=== PATIENT | female | born 1995 | race Caucasian/White ===

== ENCOUNTER 2018-02-07 17:35 | Emergency (ER) | payer SELFPAY ==
[2018-02-07 19:13] LABS: Absolute Lymphocytes (CBC) 3.1 K/uL (0.7-4.9); Absolute Monocytes 0.8 K/uL (0.1-1.3); Absolute Neutrophil 6.3 K/uL (1.8-8.0); Basophils % 0.3 % (0-1.3); Eosinophils % 1.7 % (0-4.4); Hematocrit 37.7 % (36.0-45.0); Lymphocytes % 29.7 % (15.3-44.8); MCH 25.7 pg (27.0-35.0); MCV 79.8 fL (80-100); MPV 9.8 fL (7.6-11.3); Monocytes % 7.8 % (3.3-12.3); RBC Red Blood Cell Count 4.72 M/uL (3.86-4.86)
[2018-02-07 19:16] LABS: Urine Blood NEGATIVE (NEG); Urine Glucose NEGATIVE (NEG); Urine Protein NEGATIVE (NEG); Urine Specific Gravity 1.025 (1.005-1.030); Urine pH 7.5 (5.0-7.0)
[2018-02-07 19:17] LABS: Glomerular Filtration Rate > 60 mL/min (>60)
[2018-02-07 19:18] LABS: Bicarbonate 24 mEq/L (21-31); Glucose Level 110 mg/dL (65-120); Lipase 22 U/L (22-51); Potassium 3.7 mEq/L (3.6-5.0); Sodium Level 137 mEq/L (135-145)
[2018-02-07 19:25] LABS: ALT/SGPT 15 IU/L (10-60); AST/SGOT 18 IU/L (10-42); Albumin 3.7 g/dL (3.2-5.5); Alkaline Phosphatase 52 IU/L (42-121); BUN Blood Urea Nitrogen 11 mg/dL (6-20); Bilirubin Direct 0.1 mg/dL (0-0.2); Bilirubin Total 0.4 mg/dL (0.3-1.2); Glomerular Filtration Rate > 90 mL/min (=/>90); Protein, Total 7.4 g/dL (6.0-8.3)
--- NOTE | 2018-02-07 20:18 | RAD REPORT ---
EXAM DESCRIPTION: CTAbdomen Pelvis W Contrast - 02/07/2018 8:07 pm CLINICAL HISTORY: Abdominal pain. COMPARISON: None. TECHNIQUE: Biphasic CT imaging of the abdomen and pelvis was performed with 100 ml non-ionic IV cont rast. All CT scans are performed using dose optimization technique as appropriate and may include automated exposure control or mA/KV adjustment according to patient size. FINDINGS: The lung bases are clear. The liver, spleen, pancreas, adrenal glands and kidneys are within normal limits. No bowel obstruction, free air, free fluid or abscess. The appendix is normal. No evidence of signi ficant lymphadenopathy. No suspicious bony findings. 3.7 x 3.6 cm left ovarian cyst is noted. IMPRESSION: No acute intra-abdominal or pelvic finding. Left ovarian cyst, measuring 3.7 x 3.6 cm.
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
--- NOTE | 2018-02-07 20:23 | EDPHYS ---
Physician Documentation [facility] Name: Laney Tam Age: 22 yrs Sex: Female : 1995 Arrival Date: 02/07/2018 Time: 17:38 Bed 18 Private MD: ED Physician Catalino Kinney HPI: 02/07 19:07 This 22 yrs old Female presents to ER via Ambulatory with complaints of jr8 Abdominal Pain. 19:07 The patient presents with abdominal pain in the left lower quadrant. Onset: The jr8 symptoms/episode began/occurred acutely, today. The symptoms do not radiate. Associated signs and symptoms: none. The symptoms are described as stabbing. Modifying factors: The symptoms are alleviated by nothing, the symptoms are aggravated by movement, pressure. Severity of pain: At its worst the pain was moderate in the emergency department the pain is unchanged. The patient has not experienced similar symptoms in the past. The patient has not recently seen a physician. 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 - Social history:: Smoking status: Patient uses tobacco products, smokes one pack cigarettes per day. ROS: 19:07 Eyes: Negative for injury, pain, redness, and discharge, ENT: Negative for injury, jr8 pain, and discharge, Neck: Negative for injury, pain, and swelling, Cardiovascular: Negative for chest pain, palpitations, and edema, Respiratory: Negative for shortness of breath, cough, wheezing, and pleuritic chest pain, Back: Negative for injury and pain, MS/Extremity: Negative for injury and deformity, Skin: Negative for injury, rash, and discoloration, Neuro: Negative for headache, weakness, numbness, tingling, and seizure. 19:07 Abdomen/GI: Positive for abdominal pain, Negative for nausea, vomiting, and diarrhea, abdominal cramps, abdominal distension, anorexia, dysphagia, hematemesis, black/tarry stool, rectal pain, rectal bleeding, bowel incontinence, flatulence. Exam: 19:07 Eyes: Pupils equal round and reactive to light, extra-ocular motions intact. Lids and jr8 lashes normal. Conjunctiva and sclera are non-icteric and not injected. Cornea within normal limits. Periorbital areas with no swelling, redness, or edema. ENT: Nares patent. No nasal discharge, no septal abnormalities noted. Tympanic membranes are normal and external auditory canals are clear. Oropharynx with no redness, swelling, or masses, exudates, or evidence of obstruction, uvula midline. Mucous membranes moist. Neck: Trachea midline, no thyromegaly or masses palpated, and no cervical lymphadenopathy. Supple, full range of motion without nuchal rigidity, or vertebral point tenderness. No Meningismus. Cardiovascular: Regular rate and rhythm with a normal S1 and S2. No gallops, murmurs, or rubs. Normal PMI, no JVD. No pulse deficits. Respiratory: Lungs have equal breath sounds bilaterally, clear to auscultation and percussion. No rales, rhonchi or wheezes noted. No increased work of breathing, no retractions or nasal flaring. Back: No spinal tenderness. No costovertebral tenderness. Full range of motion. Skin: Warm, dry with normal turgor. Normal color with no rashes, no lesions, and no evidence of cellulitis. MS/ Extremity: Pulses equal, no cyanosis. Neurovascular intact. Full, normal range of motion. Neuro: Awake and alert, GCS 15, oriented to person, place, time, and situation. Cranial nerves II-XII grossly intact. Motor strength 5/5 in all extremities. Sensory grossly intact. Cerebellar exam normal. Normal gait. 19:07 Abdomen/GI: Inspection: abdomen appears normal, Bowel sounds: active, all quadrants, Palpation: soft, in all quadrants, mild abdominal tenderness, in the suprapubic area, moderate abdominal tenderness, in the left lower quadrant, mass, is not appreciated, rebound tenderness, is not appreciated, voluntary guarding, is not appreciated, involuntary guarding, is not appreciated, no appreciated organomegaly, Indicators: McBurney's point is not tender, Artis's sign is negative, Rovsing's sign is negative, Liver: no appreciated palpable abnormalities, tenderness, is not appreciated. Vital Signs: 17:58 BP 143 / 78; Pulse 77; Resp 16; Temp 98; Pulse Ox 100% on R/A; Weight 105.23 kg; Height hb 5 ft. 4 in. (162.56 cm); Pain 6/10; 19:45 BP 117 / 68; Pulse 82; Resp 17 S; Pulse Ox 99% on R/A; Pain 0/10; jd3 20:25 BP 113 / 58; Pulse 78; Resp 17 S; Pulse Ox 100% on R/A; Pain 0/10; jd3 17:58 Body Mass Index 39.82 (105.23 kg, 162.56 cm) hb MDM: 18:25 Patient medically screened. 8 20:22 Data reviewed: vital signs, nurses notes, lab test result(s), radiologic studies, CT jr8 scan, and as a result, I will discharge patient. Data interpreted: Pulse oximetry: on room air is 99 %. Interpretation: normal. Counseling: I had a detailed discussion with the patient and/or guardian regarding: the historical points, exam findings, and any diagnostic results supporting the discharge/admit diagnosis, lab results, radiology results, the need for outpatient follow up, an OB/Gyne specialist, to return to the emergency department if symptoms worsen or persist or if there are any questions or concerns that arise at home. 02/07 18:49 Order name: Basic Metabolic Panel; Complete Time: 19:02/07 18:49 Order name: CBC with Diff; Complete Time: 19:22 02/07 18:49 Order name: Creatinine for Radiology; Complete Time: 19:20 02/07 18:49 Order name: Hepatic Function; Complete Time: 19:02/07 18:49 Order name: Lipase; Complete Time: 19:02/07 19:11 Order name: Urine Dipstick--Ancillary (enter results); Complete Time: 19:20 2 02/07 18:49 Order name: Urine Test (obtain specimen); Complete Time: 18:54 02/07 18:49 Order name: IV Saline Lock; Complete Time: 18:53 02/07 18:49 Order name: Labs collected and sent; Complete Time: 18:53 02/07 18:49 Order name: Urine Dipstick-Ancillary (obtain specimen); Complete Time: 18:54 02/07 19:11 Order name: Urine --Ancillary (enter results); Complete Time: 19:20 rg2 02/07 19:23 Order name: CT Abd/Pelvis - W/Contrast; Complete Time: 20:21 jr8 Administered Medications: No medications were administered Disposition: 02/07/18 20:22 Discharged to Home. Impression: Unspecified ovarian cysts, Abdominal and pelvic pain. - Condition is Stable. - Discharge Instructions: Abdominal Pain, Adult, Ovarian Cyst. - Prescriptions for Ibuprofen 800 mg Oral Tablet - take 1 tablet by ORAL route every 12 hours As needed take with food; 20 tablet. - Medication Reconciliation Form, Thank You Letter, Antibiotic Education, Prescription Opioid Use form. - Follow up: Private Physician; When: 2 - 3 days; Reason: Recheck today's complaints, Continuance of care, Re-evaluation by your physician. - Problem is new. - Symptoms have improved. Addendum: 02/09/2018 07:00 Co-signature as Attending Physician, Catalino Kinney MD I agree with the assessment and k dr plan of care. Signatures: Dispatcher [employer] EDRI Catalino Kinney MD MD [facility] Braxton Gu PA PA jr8 Helen Ruiz, RN RN Thang Vila RN RN jd3
== END 2018-02-07 20:34 | disposition home or self-care (01) ==
LOC: ER 17:35
DX: N83.209 Unspecified ovarian cyst, unspecified side (principal); F17.210 Nicotine dependence, cigarettes, uncomplicated; Z88.5 Allergy status to narcotic agent; Z91.018 Allergy to other foods
CPT/HCPCS: 36415; 74177; 80048; 80076; 81003; 81025; 83690; 85025; 99284; Q9967

== ENCOUNTER 2018-06-22 05:31 | Emergency (ER) | payer OTHER, SELFPAY ==
[2018-06-22 07:11] LABS: Urine Blood 1+ (NEG); Urine Glucose NEGATIVE (NEG); Urine Protein 3+ (NEG); Urine pH 5.5 (5.0-7.0)
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
== END 2018-06-22 07:26 | disposition left against medical advice (07) ==
LOC: ER 05:31
DX: S39.81XA Other specified injuries of abdomen, initial encounter (principal); O99.331 Smoking (tobacco) complicating pregnancy, first trimester; F17.210 Nicotine dependence, cigarettes, uncomplicated; Y04.2XXA Assault by strike against or bumped into by another person, initial encounter; Y93.89 Activity, other specified; Y92.9 Unspecified place or not applicable; Z88.5 Allergy status to narcotic agent; Z91.018 Allergy to other foods; Z3A.01 Less than 8 weeks gestation of pregnancy
CPT/HCPCS: 81003; 81025; 99283

== ENCOUNTER 2018-12-16 21:21 | Emergency (ER) | payer OTHER ==
--- OUTSIDE RECORDS SUMMARY | 2018-12-16 22:21 | XMS REPORT ---
:1995 [facility] Address [address] [place] [address] Dr. Seals[address] [place] [id number] Care Team Providers Name Role Phone Unavailable Unavailable Unavailable Problems This patient has no known problems. Allergies, Adverse Reactions, Alerts This patient has no known allergies or adverse reactions. Medications This patient has no known medications.
--- NOTE | 2018-12-16 23:06 | ER ---
Nurse's Notes [facility] Name: Laney Tam Age: 23 yrs Sex: Female : 1995 Arrival Date: 12/16/2018 Time: 21:24 Bed 26 Private MD: Diagnosis: Pain in right wrist Presentation: 12/16 21:41 Presenting complaint: Patient states: "I fell about 1 week ago and my wrist is still jd3 hurting.". Transition of care: patient was not received from another setting of care. Onset of symptoms was December 11, 2018. Risk Assessment: Do you want to hurt yourself or someone else? Patient reports no desire to harm self or others. Initial Sepsis Screen: Does the patient meet any 2 criteria? No. Patient's initial sepsis screen is negative. Does the patient have a suspected source of infection? No. Patient's initial sepsis screen is negative. Care prior to arrival: None. 21:41 Method Of Arrival: Ambulatory jd3 21:41 Acuity: RAVEN 4 jd3 Triage Assessment: 22:09 Injury Description: FALL. 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 - Social history:: Smoking status: Patient uses tobacco products, smokes one pack cigarettes per day. - Ebola Screening: : Patient negative for fever greater than or equal to 101.5 degrees Fahrenheit, and additional compatible Ebola Virus Disease symptoms. Screenin:09 Abuse screen: Denies threats or abuse. Denies injuries from another. Nutritional rv screening: No deficits noted. Tuberculosis screening: No symptoms or risk factors identified. Fall Risk None identified. Assessment: 22:08 General: Appears in no apparent distress. comfortable, Behavior is calm, cooperative. rv Pain: Complains of pain in right wrist. Neuro: Level of Consciousness is awake, alert, obeys commands, Oriented to person, place, time, situation. Cardiovascular: Capillary refill < 3 seconds. Respiratory: Airway is patent. GI: No signs and/or symptoms were reported involving the gastrointestinal system. : No signs and/or symptoms were reported regarding the genitourinary system. EENT: No signs and/or symptoms were reported regarding the EENT system. Derm: Skin is intact. Musculoskeletal: Reports pain in right wrist. 23:00 Reassessment: Patient appears in no apparent distress at this time. Patient is alert, rr5 oriented x 3, equal unlabored respirations, skin warm/dry/pink. no complaints made. 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 Vital Signs: 21:43 BP 116 / 92; Pulse 94; Resp 17 S; Temp 99.5(O); Pulse Ox 99% on R/A; Weight 99.79 kg rv (R); Height 5 ft. 4 in. (162.56 cm) (R); Pain 6/10; 21:43 Body Mass Index 37.76 (99.79 kg, 162.56 cm) rv ED Course: 21:24 Patient arrived in ED. es 21:42 Triage completed. jd3 21:44 [facility]C [facility] kb 21:44 Kevin North MD is Attending Physician. kb 21:44 Arm band placed on. jd3 22:09 Patient has correct armband on for positive identification. Bed in low position. Call rv light in reach. Side rails up X 1. Pulse ox on. NIBP on. 22:34 X-ray completed. Portable x-ray completed in exam room. Patient tolerated procedure ag1 well. 22:37 Wrist Right 3 View XRAY In Process Unspecified. EDMS 23:00 Moiz Wilson, STORMY is Primary Nurse. rr5 23:14 No provider procedures requiring assistance completed. Patient did not have IV access rv during this emergency room visit. Administered Medications: No medications were administered Outcome: 23:05 Discharge ordered by . kb 23:14 Discharged to home ambulatory. rv 23:14 Condition: good 23:14 Discharge instructions given to patient, Instructed on discharge instructions, follow up and referral plans. Demonstrated understanding of instructions, follow-up care. 23:15 Patient left the ED. rv Signatures: Dispatcher [employer] EDSC Keiko Reeder FNP-C FNP-Jocelynn Do Ashley ag1 Thang Gonsales RN RN jd3 Ruel Charles RN RN rv Moiz Wilson RN RN rr5 Corrections: (The following items were deleted from the chart) 21:47 21:43 BP 116 / 92; Pulse 94bpm; Resp 17bpm; Spontaneous; Pulse Ox 99% RA; 99.79 kg rv Reported; Height 5 ft. 4 in. Reported; BMI: 37.7; Pain 6/10; jd3
--- NOTE | 2018-12-16 23:06 | EDPHYS ---
Physician Documentation [facility] Name: Laney Tam Age: 23 yrs Sex: Female : 1995 Arrival Date: 12/16/2018 Time: 21:24 Bed 26 Private MD: ED Physician Kevin North HPI: 12/16 22:05 This 23 yrs old Female presents to ER via Ambulatory with complaints of Wrist kb Injury. 22:05 The patient or guardian reports pain. The complaints affect the right wrist diffusely. kb Context: The problem was sustained at home, resulted from a fall. Onset: The symptoms/episode began/occurred 1 week(s) ago. Modifying factors: The symptoms are alleviated by nothing, the symptoms are aggravated by movement. Associated signs and symptoms: The patient has no apparent associated signs or symptoms. The patient has not experienced similar symptoms in the past. The patient has not recently seen a physician. 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 - Social history:: Smoking status: Patient uses tobacco products, smokes one pack cigarettes per day. - Ebola Screening: : Patient negative for fever greater than or equal to 101.5 degrees Fahrenheit, and additional compatible Ebola Virus Disease symptoms. ROS: 22:05 Constitutional: Negative for fever, chills, and weight loss, Cardiovascular: Negative kb for chest pain, palpitations, and edema, Respiratory: Negative for shortness of breath, cough, wheezing, and pleuritic chest pain, Abdomen/GI: Negative for abdominal pain, nausea, vomiting, diarrhea, and constipation, Skin: Negative for injury, rash, and discoloration, Neuro: Negative for headache, weakness, numbness, tingling, and seizure. 22:05 MS/extremity: Positive for pain, of the right wrist. Exam: 22:05 Constitutional: This is a well developed, well nourished patient who is awake, alert, kb and in no acute distress. Head/Face: Normocephalic, atraumatic. ENT: Nares patent. No nasal discharge, no septal abnormalities noted. Tympanic membranes are normal and external auditory canals are clear. Oropharynx with no redness, swelling, or masses, exudates, or evidence of obstruction, uvula midline. Mucous membranes moist. Neck: Trachea midline, no thyromegaly or masses palpated, and no cervical lymphadenopathy. Supple, full range of motion without nuchal rigidity, or vertebral point tenderness. No Meningismus. Chest/axilla: Normal chest wall appearance and motion. Nontender with no deformity. No lesions are appreciated. Cardiovascular: Regular rate and rhythm with a normal S1 and S2. No gallops, murmurs, or rubs. Normal PMI, no JVD. No pulse deficits. Respiratory: Lungs have equal breath sounds bilaterally, clear to auscultation and percussion. No rales, rhonchi or wheezes noted. No increased work of breathing, no retractions or nasal flaring. Abdomen/GI: Soft, non-tender, with normal bowel sounds. No distension or tympany. No guarding or rebound. No evidence of tenderness throughout. Skin: Warm, dry with normal turgor. Normal color with no rashes, no lesions, and no evidence of cellulitis. MS/ Extremity: Pulses equal, no cyanosis. Neurovascular intact. Full, normal range of motion. Neuro: Awake and alert, GCS 15, oriented to person, place, time, and situation. Cranial nerves II-XII grossly intact. Motor strength 5/5 in all extremities. Sensory grossly intact. Cerebellar exam normal. Normal gait. Vital Signs: 21:43 BP 116 / 92; Pulse 94; Resp 17 S; Temp 99.5(O); Pulse Ox 99% on R/A; Weight 99.79 kg rv (R); Height 5 ft. 4 in. (162.56 cm) (R); Pain 6/10; 21:43 Body Mass Index 37.76 (99.79 kg, 162.56 cm) rv MDM: 21:45 Patient medically screened. kb 22:04 Data reviewed: vital signs, nurses notes. Data interpreted: Pulse oximetry: on room air kb is 99 %. Interpretation: normal. Counseling: I had a detailed discussion with the patient and/or guardian regarding: the historical points, exam findings, and any diagnostic results supporting the discharge/admit diagnosis, radiology results, the need for outpatient follow up, a family practitioner, to return to the emergency department if symptoms worsen or persist or if there are any questions or concerns that arise at home. 12/16 21:47 Order name: Wrist Right 3 View XRAY kb 12/16 23:05 Order name: Koko Wrap; Complete Time: 23:10 kb Administered Medications: No medications were administered Disposition: 12/17 12:25 Co-signature as Attending Physician, Kevin North MD I agree with the assessment and scott plan of care. Disposition: 12/16/18 23:05 Discharged to Home. Impression: Pain in right wrist. - Condition is Stable. - Discharge Instructions: Wrist Pain, [id number]. - Medication Reconciliation Form, Thank You Letter, Antibiotic Education, Prescription Opioid Use form. - Follow up: Emergency Department; When: As needed; Reason: Worsening of condition. Follow up: Private Physician; When: 2 - 3 days; Reason: Recheck today's complaints, Continuance of care, Re-evaluation by your physician. Signatures: Dispatcher [employer] EDKeiko Brown, DATA INTEGRITY CONSULTANT-C DATA INTEGRITY CONSULTANT-Kevin Celaya MD MD cha Davies, Jonathon, RN RN Ruel Ortiz RN RN rv Corrections: (The following items were deleted from the chart) 12/16 23:15 23:05 12/16/2018 23:05 Discharged to Home. Impression: Pain in right wrist. Condition rv is Stable. Forms are Medication Reconciliation Form, Thank You Letter, Antibiotic Education, Prescription Opioid Use. Follow up: Emergency Department; When: As needed; Reason: Worsening of condition. Follow up: Private Physician; When: 2 - 3 days; Reason: Recheck today's complaints, Continuance of care, Re-evaluation by your physician. kb
--- NOTE | 2018-12-17 08:28 | RAD REPORT ---
EXAM DESCRIPTION: RAD - Wrist Right 3 View - 12/16/2018 10:37 pm CLINICAL HISTORY: PAIN History of fall with wrist pain COMPARISON: No comparisons FINDINGS: No fracture or dislocation seen involving the right wrist. No foreign body or other soft tissue abnormality. IMPRESSION: Negative examination.
== END 2018-12-16 23:15 | disposition home or self-care (01) ==
LOC: ER 21:21
DX: M25.531 Pain in right wrist (principal); D64.9 Anemia, unspecified; Z88.5 Allergy status to narcotic agent; Z91.018 Allergy to other foods
CPT/HCPCS: 99283

== ENCOUNTER 2019-02-16 05:09 | Emergency (ER) | payer OTHER ==
--- OUTSIDE RECORDS SUMMARY | 2019-02-16 05:11 | XMS REPORT ---
:1995 [facility] Organization [facility] Address [address] [place] [address] Dr. Seals[address] [place] [id number] Care Team Providers Name Role Phone Unavailable Unavailable Unavailable Problems This patient has no known problems. Allergies, Adverse Reactions, Alerts This patient has no known allergies or adverse reactions. Medications This patient has no known medications.
--- NOTE | 2019-02-16 06:26 | EDPHYS ---
Physician Documentation [facility] Name: Laney Tam Age: 23 yrs Sex: Female : 1995 Arrival Date: 02/16/2019 Time: 05:13 Bed 16 Private MD: ED Physician Michel Navarrete HPI: 02/16 06:29 This 23 yrs old Female presents to ER via Ambulatory with complaints of Spot jr8 in back of throat. 06:29 The patient presents with sore throat. Onset: The symptoms/episode began/occurred jr8 gradually, 1 week(s) ago. Severity of symptoms: At their worst the symptoms were mild, in the emergency department the symptoms are unchanged. Modifying factors: The symptoms are alleviated by nothing, the symptoms are aggravated by swallowing. Associated signs and symptoms: The patient has no apparent associated signs or symptoms. The patient has not experienced similar symptoms in the past. The patient has not recently seen a physician. 06:29 spot on back of throat for one week. Starting to get sore with swallowing . 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 - Social history:: Smoking status: Patient uses tobacco products, smokes one pack cigarettes per day. Patient/guardian denies using alcohol, street drugs. - Ebola Screening: : Patient negative for fever greater than or equal to 101.5 degrees Fahrenheit, and additional compatible Ebola Virus Disease symptoms Patient denies exposure to infectious person Patient denies travel to an Ebola-affected area in the 21 days before illness onset. ROS: 06:29 Eyes: Negative for injury, pain, redness, and discharge, Neck: Negative for injury, jr8 pain, and swelling, Cardiovascular: Negative for chest pain, palpitations, and edema, Respiratory: Negative for shortness of breath, cough, wheezing, and pleuritic chest pain, Abdomen/GI: Negative for abdominal pain, nausea, vomiting, diarrhea, and constipation, Back: Negative for injury and pain, MS/Extremity: Negative for injury and deformity, Skin: Negative for injury, rash, and discoloration, Neuro: Negative for headache, weakness, numbness, tingling, and seizure. :29 ENT: Positive for sore throat. Exam: : Eyes: Pupils equal round and reactive to light, extra-ocular motions intact. Lids and jr8 lashes normal. Conjunctiva and sclera are non-icteric and not injected. Cornea within normal limits. Periorbital areas with no swelling, redness, or edema. Neck: Trachea midline, no thyromegaly or masses palpated, and no cervical lymphadenopathy. Supple, full range of motion without nuchal rigidity, or vertebral point tenderness. No Meningismus. Cardiovascular: Regular rate and rhythm with a normal S1 and S2. No gallops, murmurs, or rubs. Normal PMI, no JVD. No pulse deficits. Respiratory: Lungs have equal breath sounds bilaterally, clear to auscultation and percussion. No rales, rhonchi or wheezes noted. No increased work of breathing, no retractions or nasal flaring. Abdomen/GI: Soft, non-tender, with normal bowel sounds. No distension or tympany. No guarding or rebound. No evidence of tenderness throughout. Back: No spinal tenderness. No costovertebral tenderness. Full range of motion. Skin: Warm, dry with normal turgor. Normal color with no rashes, no lesions, and no evidence of cellulitis. MS/ Extremity: Pulses equal, no cyanosis. Neurovascular intact. Full, normal range of motion. Neuro: Awake and alert, GCS 15, oriented to person, place, time, and situation. Cranial nerves II-XII grossly intact. Motor strength 5/5 in all extremities. Sensory grossly intact. Cerebellar exam normal. Normal gait. :29 ENT: External ear(s): are unremarkable, Ear canal(s): are normal, clear, TM's: are normal, no evidence of bulging, no dullness, no erythema, no fluid levels, no hemotympanum, no rupture, normal bony landmarks, normal mobility, Nose: External nose: no obvious acute abnormality, Nasal septum: is midline, Nasal mucosa: moist, Turbinates: are normal, Mouth: Lips: moist, Oral mucosa: pink and intact, moist, Gums: pink, Tongue: is moist, Posterior pharynx: Airway: patent, Tonsils: are normal in appearance, no enlargement, no erythema, no exudate, no ulcerations, Tonsillolith present on right tonsil , Uvula: midline, non-edematous, no erythema, swelling, is not appreciated, erythema, is not appreciated. Vital Signs: 05:10 BP 124 / 66; Pulse 92; Resp 18; Temp 98.0(O); Pulse Ox 100% on R/A; Weight 101.15 kg fc (R); Height 5 ft. 4 in. (162.56 cm) (R); Pain 0/10; 05:10 Body Mass Index 38.28 (101.15 kg, 162.56 cm) MDM: 06:03 Patient medically screened. [facility] 06:22 Data reviewed: vital signs, nurses notes, lab test result(s), and as a result, I will [facility] discharge patient. Data interpreted: Pulse oximetry: on room air is 100 %. Interpretation: normal. Counseling: I had a detailed discussion with the patient and/or guardian regarding: the historical points, exam findings, and any diagnostic results supporting the discharge/admit diagnosis, lab results, the need for outpatient follow up, a family practitioner, to return to the emergency department if symptoms worsen or persist or if there are any questions or concerns that arise at home. 02/16 06:39 Order name: Urine Dipstick--Ancillary (enter results) [facility] 02/16 06:39 Order name: Urine --Ancillary (enter results) [facility] 02/16 06:26 Order name: Urine Test (obtain specimen); Complete Time: 06:42 [facility] 02/16 06:26 Order name: Urine Dipstick-Ancillary (obtain specimen); Complete Time: 06:42 [facility] Administered Medications: No medications were administered Disposition: 02/16/19 06:25 Discharged to Home. Impression: Tonsillolith. - Condition is Stable. - Medication Reconciliation Form, Thank You Letter, Antibiotic Education, Prescription Opioid Use form. - Follow up: Private Physician; When: 2 - 3 days; Reason: Recheck today's complaints, Continuance of care, Re-evaluation by your physician. - Problem is new. - Symptoms have improved. Signatures: Dispatcher [employer] EDPerri Marina RN RN Braxton Armas PA PA jr8 Wilian Guerrero RN RN jb4 Corrections: (The following items were deleted from the chart) 06:43 06:25 02/16/2019 06:25 Discharged to Home. Impression: Tonsillolith. Condition is jb4 Stable. Forms are Medication Reconciliation Form, Thank You Letter, Antibiotic Education, Prescription Opioid Use. Follow up: Private Physician; When: 2 - 3 days; Reason: Recheck today's complaints, Continuance of care, Re-evaluation by your physician. Problem is new. Symptoms have improved. jr8
--- NOTE | 2019-02-16 06:26 | ER ---
Nurse's Notes [facility] Name: Laney Tam Age: 23 yrs Sex: Female : 1995 Arrival Date: 02/16/2019 Time: 05:13 Bed 16 Private MD: Diagnosis: Tonsillolith Presentation: 02/16 05:10 Presenting complaint: Patient states: that she has had this white spot on the right fc side back of her throat which has been there for a week. Denies sore throat, fever and cough. She is concerned because her premature baby that was born at 24 week who is now 4 months old is coming home in 2 days. Is also requesting test, thinks it might be possible she is . Transition of care: patient was not received from another setting of care. Onset of symptoms was February 09, 2019. Risk Assessment: Do you want to hurt yourself or someone else? Patient reports no desire to harm self or others. Initial Sepsis Screen: Does the patient meet any 2 criteria? No. Patient's initial sepsis screen is negative. Does the patient have a suspected source of infection? No. Patient's initial sepsis screen is negative. Care prior to arrival: None. 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 - Social history:: Smoking status: Patient uses tobacco products, smokes one pack cigarettes per day. Patient/guardian denies using alcohol, street drugs. - Ebola Screening: : Patient negative for fever greater than or equal to 101.5 degrees Fahrenheit, and additional compatible Ebola Virus Disease symptoms Patient denies exposure to infectious person Patient denies travel to an Ebola-affected area in the 21 days before illness onset. Screenin:10 Abuse screen: Denies threats or abuse. Nutritional screening: No deficits noted. fc Tuberculosis screening: No symptoms or risk factors identified. Fall Risk None identified. Assessment: 05:20 General: Appears in no apparent distress. comfortable, Behavior is calm, cooperative, jb4 appropriate for age. Pain: Denies pain. Neuro: Level of Consciousness is awake, alert, obeys commands, Oriented to person, place, time, situation. Cardiovascular: Patient's skin is warm and dry. Respiratory: Airway is patent Respiratory effort is even, unlabored, Respiratory pattern is regular, symmetrical. GI: No signs and/or symptoms were reported involving the gastrointestinal system. : No signs and/or symptoms were reported regarding the genitourinary system. EENT: Throat is clear is pink White area noted to the right tonsil. Derm: Skin is intact, Skin is normal. Musculoskeletal: Circulation, motion, and sensation intact. Vital Signs: 05:10 BP 124 / 66; Pulse 92; Resp 18; Temp 98.0(O); Pulse Ox 100% on R/A; Weight 101.15 kg (R); Height 5 ft. 4 in. (162.56 cm) (R); Pain 0/10; 05:10 Body Mass Index 38.28 (101.15 kg, 162.56 cm) ED Course: 05:10 Arm band placed on Patient placed in an exam room, on a stretcher. 05:10 Patient has correct armband on for positive identification. Bed in low position. Call light in reach. 05:10 No provider procedures requiring assistance completed. 05:13 Patient arrived in ED. es 05:32 Wilian Guerrero, STORMY is Primary Nurse. jb4 05:42 Triage completed. 06:02 Braxton Gu [facility]. jr8 06:02 Michel Navarrete MD is Attending Physician. jr8 06:42 Patient did not have IV access during this emergency room visit. jb4 Administered Medications: No medications were administered Outcome: 06:25 Discharge ordered by . jr8 06:42 Discharged to home ambulatory, with significant other. jb4 06:42 Condition: stable 06:42 Discharge instructions given to patient, family, Instructed on discharge instructions, follow up and referral plans. Demonstrated understanding of instructions, follow-up care. 06:43 Patient left the ED. jb4 Signatures: Jocelynn Garcia Felicia, RN RN Braxton Gu PA PA jr8 Wilian Guerrero, RN RN jb4
[2019-02-16 06:59] LABS: Urine Blood NEGATIVE (NEG); Urine Glucose NEGATIVE (NEG); Urine Protein NEGATIVE (NEG)
== END 2019-02-16 06:43 | disposition home or self-care (01) ==
LOC: ER 05:09
DX: J03.90 Acute tonsillitis, unspecified (principal); F17.210 Nicotine dependence, cigarettes, uncomplicated; Z88.5 Allergy status to narcotic agent; Z91.018 Allergy to other foods
CPT/HCPCS: 81003; 81025; 99281

== ENCOUNTER 2019-05-05 23:52 | Emergency (ER) | payer OTHER ==
--- OUTSIDE RECORDS SUMMARY | 2019-05-05 23:54 | XMS REPORT ---
:1995 [facility] Address [address] [place] [address] Dr. Cota [address] [place] [id number] Care Team Providers Name Role Phone Unavailable Unavailable Unavailable Problems This patient has no known problems. Allergies, Adverse Reactions, Alerts This patient has no known allergies or adverse reactions. Medications This patient has no known medications.
--- NOTE | 2019-05-06 00:32 | ER ---
Nurse's Notes [facility] Name: Laney Tam Age: 24 yrs Sex: Female : 1995 Arrival Date: 05/05/2019 Time: 23:59 Bed 8 Private MD: Diagnosis: Nausea and vomiting Presentation: 05/06 00:00 Presenting complaint: Patient states: I threw up yesterday and today and I need to make ed1 sure I am not contagious before I can go back to work. Transition of care: patient was not received from another setting of care. Onset of symptoms was May 04, 2019. Risk Assessment: Do you want to hurt yourself or someone else? Patient reports no desire to harm self or others. Initial Sepsis Screen: Does the patient meet any 2 criteria? No. Patient's initial sepsis screen is negative. Does the patient have a suspected source of infection? No. Patient's initial sepsis screen is negative. Care prior to arrival: None. 00:00 Method Of Arrival: Ambulatory ed1 00:00 Acuity: RAVEN 3 ed1 Triage Assessment: 00:02 General: Appears in no apparent distress. Behavior is calm, cooperative, Pt drinking ed1 soda during triage. Pain: Complains of pain in low back area Pain currently is 7 out of 10 on a pain scale. GI: Reports vomiting, Patient currently denies abdominal pain, diarrhea. 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 - Social history:: Smoking status: Patient uses tobacco products, smokes one pack cigarettes per day. - Ebola Screening: : Patient negative for fever greater than or equal to 101.5 degrees Fahrenheit, and additional compatible Ebola Virus Disease symptoms Patient denies exposure to infectious person Patient denies travel to an Ebola-affected area in the 21 days before illness onset No symptoms or risks identified at this time. Screenin:47 Abuse screen: Denies threats or abuse. Denies injuries from another. Nutritional lp1 screening: No deficits noted. Tuberculosis screening: No symptoms or risk factors identified. Fall Risk None identified. Assessment: 00:45 General: Appears in no apparent distress. Behavior is calm, cooperative, appropriate lp1 for age. Pain: Denies pain. Neuro: No deficits noted. Cardiovascular: No deficits noted. Respiratory: Respiratory effort is even, unlabored. GI: Abdomen is non-distended, Patient currently denies nausea. : No signs and/or symptoms were reported regarding the genitourinary system. EENT: No signs and/or symptoms were reported regarding the EENT system. Derm: Skin is pink, warm \T\ dry. Musculoskeletal: No deficits noted. Vital Signs: 00:02 BP 134 / 70; Pulse 101; Resp 17; Temp 98.1(TE); Pulse Ox 100% on R/A; Weight 109.77 kg; ed1 Height 5 ft. 4 in. (162.56 cm); Pain 7/10; 00:02 Body Mass Index 41.54 (109.77 kg, 162.56 cm) ed1 ED Course: 05/05 23:59 Patient arrived in ED. ed1 05/06 00:00 Kevin North MD is Attending Physician. scott 00:01 Triage completed. ed1 00:02 Arm band placed on left wrist. ed1 00:17 Thang Gonsales, RN is Primary Nurse. jd3 00:45 Silvia Acosta, RN is Primary Nurse. lp1 00:47 Patient has correct armband on for positive identification. lp1 00:47 No provider procedures requiring assistance completed. Patient did not have IV access lp1 during this emergency room visit. Administered Medications: No medications were administered Outcome: 00:30 Discharge ordered by . scott 00:47 Discharged to home ambulatory, with significant other. lp1 00:47 Condition: good 00:47 Discharge instructions given to patient, Instructed on discharge instructions, follow up and referral plans. medication usage, Demonstrated understanding of instructions, follow-up care, medications, Prescriptions given X 1. 00:47 Patient left the ED. lp1 Signatures: Kevin North MD MD cha Riggs, Erika RN RN ed1 Silvia Acosta, STORMY RN lp1 Thang Gonsales RN RN jd3
--- NOTE | 2019-05-06 00:33 | EDPHYS ---
Physician Documentation [facility] Name: Laney Tam Age: 24 yrs Sex: Female : 1995 Arrival Date: 05/05/2019 Time: 23:59 Bed 8 Private MD: ALIZA Physician Kevin North HPI: 05/06 00:27 This 24 yrs old Female presents to ER via Ambulatory with complaints of scott Nausea/Vomiting. 00:27 The patient presents to the emergency department with nausea, vomiting, 2 times since scott the onset of symptoms. Onset: The symptoms/episode began/occurred 2 day(s) ago. Possible causes: unknown. The symptoms are aggravated by nothing. The symptoms are alleviated by nothing. Associated signs and symptoms: The patient has no apparent associated signs or symptoms. Severity of symptoms: At their worst the symptoms were very mild in the emergency department the symptoms have improved moderately. The patient has not experienced similar symptoms in the past. 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 - Social history:: Smoking status: Patient uses tobacco products, smokes one pack cigarettes per day. - Ebola Screening: : Patient negative for fever greater than or equal to 101.5 degrees Fahrenheit, and additional compatible Ebola Virus Disease symptoms Patient denies exposure to infectious person Patient denies travel to an Ebola-affected area in the 21 days before illness onset No symptoms or risks identified at this time. ROS: 00:28 Constitutional: Negative for fever, chills, and weight loss, Eyes: Negative for injury, scott pain, redness, and discharge, ENT: Negative for injury, pain, and discharge, Neck: Negative for injury, pain, and swelling, Cardiovascular: Negative for chest pain, palpitations, and edema, Respiratory: Negative for shortness of breath, cough, wheezing, and pleuritic chest pain, Back: Negative for injury and pain, : Negative for injury, bleeding, discharge, and swelling, MS/Extremity: Negative for injury and deformity, Skin: Negative for injury, rash, and discoloration, Neuro: Negative for headache, weakness, numbness, tingling, and seizure, Psych: Negative for depression, anxiety, suicide ideation, homicidal ideation, and hallucinations, Allergy/Immunology: Negative for hives, rash, and allergies, Endocrine: Negative for neck swelling, polydipsia, polyuria, polyphagia, and marked weight changes, Hematologic/Lymphatic: Negative for swollen nodes, abnormal bleeding, and unusual bruising. 00:28 Abdomen/GI: Positive for abdominal pain, nausea and vomiting. Exam: 00:28 Constitutional: This is a well developed, well nourished patient who is awake, alert, scott and in no acute distress. Head/Face: Normocephalic, atraumatic. Eyes: Pupils equal round and reactive to light, extra-ocular motions intact. Lids and lashes normal. Conjunctiva and sclera are non-icteric and not injected. Cornea within normal limits. Periorbital areas with no swelling, redness, or edema. ENT: Nares patent. No nasal discharge, no septal abnormalities noted. Tympanic membranes are normal and external auditory canals are clear. Oropharynx with no redness, swelling, or masses, exudates, or evidence of obstruction, uvula midline. Mucous membranes moist. Neck: Trachea midline, no thyromegaly or masses palpated, and no cervical lymphadenopathy. Supple, full range of motion without nuchal rigidity, or vertebral point tenderness. No Meningismus. Chest/axilla: Normal chest wall appearance and motion. Nontender with no deformity. No lesions are appreciated. Cardiovascular: Regular rate and rhythm with a normal S1 and S2. No gallops, murmurs, or rubs. Normal PMI, no JVD. No pulse deficits. Respiratory: Lungs have equal breath sounds bilaterally, clear to auscultation and percussion. No rales, rhonchi or wheezes noted. No increased work of breathing, no retractions or nasal flaring. Abdomen/GI: Soft, non-tender, with normal bowel sounds. No distension or tympany. No guarding or rebound. No evidence of tenderness throughout. Back: No spinal tenderness. No costovertebral tenderness. Full range of motion. Skin: Warm, dry with normal turgor. Normal color with no rashes, no lesions, and no evidence of cellulitis. MS/ Extremity: Pulses equal, no cyanosis. Neurovascular intact. Full, normal range of motion. Neuro: Awake and alert, GCS 15, oriented to person, place, time, and situation. Cranial nerves II-XII grossly intact. Motor strength 5/5 in all extremities. Sensory grossly intact. Cerebellar exam normal. Normal gait. Psych: Awake, alert, with orientation to person, place and time. Behavior, mood, and affect are within normal limits. Vital Signs: 00:02 BP 134 / 70; Pulse 101; Resp 17; Temp 98.1(TE); Pulse Ox 100% on R/A; Weight 109.77 kg; ed1 Height 5 ft. 4 in. (162.56 cm); Pain 7/10; 00:02 Body Mass Index 41.54 (109.77 kg, 162.56 cm) ed1 MDM: 00:07 Patient medically screened. [facility] 00:28 Data reviewed: vital signs, nurses notes. [facility] 05/06 00:30 Order name: Urine Dipstick--Ancillary (enter results) [facility] 05/06 00:30 Order name: Urine --Ancillary (enter results) 2 Administered Medications: No medications were administered Disposition: 05/06/19 00:30 Discharged to Home. Impression: Nausea and vomiting. - Condition is Stable. - Discharge Instructions: Nausea and Vomiting, Adult. - Prescriptions for Zofran 4 mg Oral Tablet - take 1 tablet by ORAL route every 12 hours As needed; 10 tablet. - Work release form, Medication Reconciliation Form, Thank You Letter, Antibiotic Education, Prescription Opioid Use form. - Follow up: Private Physician; When: 2 - 3 days; Reason: Recheck today's complaints, Continuance of care, Re-evaluation by your physician. - Problem is new. - Symptoms have improved. Signatures: Dispatcher [employer] EDMS Kevin North MD MD cha Riggs, Erika RN RN ed1 Silvia Acosta RN RN lp1 Corrections: (The following items were deleted from the chart) 00:47 00:30 05/06/2019 00:30 Discharged to Home. Impression: Nausea and vomiting. Condition lp1 is Stable. Forms are Medication Reconciliation Form, Thank You Letter, Antibiotic Education, Prescription Opioid Use. Follow up: Private Physician; When: 2 - 3 days; Reason: Recheck today's complaints, Continuance of care, Re-evaluation by your physician. Problem is new. Symptoms have improved. scott
[2019-05-06 01:00] LABS: Urine Blood NEGATIVE (NEG); Urine Glucose NEGATIVE (NEG); Urine Protein NEGATIVE (NEG); Urine Specific Gravity >1.030 (1.005-1.030); Urine pH 6.5 (5.0-7.0)
== END 2019-05-06 00:47 | disposition home or self-care (01) ==
LOC: ER 23:52
DX: R11.2 Nausea with vomiting, unspecified (principal); Z88.5 Allergy status to narcotic agent; Z91.013 Allergy to seafood; F17.210 Nicotine dependence, cigarettes, uncomplicated
CPT/HCPCS: 81003; 81025; 99282

== ENCOUNTER 2019-05-07 21:09 | Emergency (ER) | payer OTHER, SELFPAY ==
--- OUTSIDE RECORDS SUMMARY | 2019-05-07 21:11 | XMS REPORT ---
:1995 [facility] Address [address] [place] [address] Dr. Cota [address] [place] [id number] Care Team Providers Name Role Phone Unavailable Unavailable Unavailable Problems This patient has no known problems. Allergies, Adverse Reactions, Alerts This patient has no known allergies or adverse reactions. Medications This patient has no known medications.
[2019-05-07] MEDS ORDERED: NA CHLORIDE 0.9% 1,000 ML ONE (22:00)
[2019-05-07] MEDS ORDERED: KETOROLAC 30 MG/ML INJ ONE (22:00)
[2019-05-07 22:08] LABS: Basophils % 0.3 % (0-1.3); Eosinophils % 1.5 % (0-4.4); Hematocrit 31.9 % (36.0-45.0); Lymphocytes % 36.8 % (15.3-44.8); MPV 9.1 fL (7.6-11.3); Monocytes % 7.9 % (3.3-12.3); RBC Red Blood Cell Count 4.56 M/uL (3.86-4.86)
[2019-05-07 22:18] LABS: ALT/SGPT 20 U/L (12-78); AST/SGOT 13 U/L (15-37); Albumin 3.2 g/dL (3.4-5.0); Alkaline Phosphatase 55 U/L (45-117); BUN Blood Urea Nitrogen 11 mg/dL (7-18); Bicarbonate 25 mmol/L (21-32); Bilirubin Direct < 0.1 mg/dL (0-0.2); Bilirubin Total 0.2 mg/dL (0.2-1.0); Glucose Level 89 mg/dL (74-106); Lipase 186 U/L (73-393); Potassium 3.7 mmol/L (3.5-5.1); Protein, Total 7.2 g/dL (6.4-8.2); Sodium Level 143 mmol/L (136-145)
[2019-05-07 22:41] LABS: Urine Blood NEGATIVE (NEG); Urine Glucose NEGATIVE (NEG); Urine Protein TRACE (NEG); Urine Specific Gravity >1.030 (1.005-1.030); Urine pH 5.5 (5.0-7.0)
[2019-05-07 22:41] LABS: Urine Mucus 1+ /HPF (NONE SEEN)
[2019-05-07 22:42] LABS: Urine Culture Reflex Order REFLEXED; Urine RBC <5 /HPF (NONE SEEN)
[2019-05-07 22:43] LABS: Urine Bacteria <20 /HPF (<20)
--- NOTE | 2019-05-07 23:04 | EDPHYS ---
Physician Documentation [facility] Name: Laney Tam Age: 24 yrs Sex: Female : 1995 Arrival Date: 05/07/2019 Time: 21:11 Bed 30 Private MD: ED Physician Kevin North HPI: 05/07 21:31 This 24 yrs old Female presents to ER via Ambulatory with complaints of Back pm1 Pain. 21:31 The patient presents with pain that is acute, with no known mechanism of injury. The pm1 symptoms are located in the left low back. Onset: The symptoms/episode began/occurred 3 day(s) ago. Associated signs and symptoms: Pertinent positives: nausea, vomiting, Pertinent negatives: abdominal pain, constipation, fever, numbness, tingling, weakness. The problem was sustained from unknown cause. Modifying factors: The patient symptoms are alleviated by nothing, the patient symptoms are aggravated by movement. Severity of symptoms: in the emergency department the symptoms are actually worse. The patient has not experienced similar symptoms in the past. The patient has been recently seen at the [facility] Emergency Department, nausea and vomiting. 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 - Social history:: Smoking status: Patient uses tobacco products, smokes one pack cigarettes per day. - Ebola Screening: : No symptoms or risks identified at this time. ROS: 21:31 Constitutional: Negative for fever, chills, and weight loss, Eyes: Negative for injury, pm1 pain, redness, and discharge, ENT: Negative for injury, pain, and discharge, Neck: Negative for injury, pain, and swelling, Cardiovascular: Negative for chest pain, palpitations, and edema, Respiratory: Negative for shortness of breath, cough, wheezing, and pleuritic chest pain, Abdomen/GI: Negative for abdominal pain, nausea, vomiting, diarrhea, and constipation. 21:31 : Negative for injury, bleeding, discharge, and swelling, MS/Extremity: Negative for injury and deformity, Skin: Negative for injury, rash, and discoloration, Neuro: Negative for headache, weakness, numbness, tingling, and seizure. 21:31 Back: Positive for flank pain, on the left. Exam: 21:31 Constitutional: This is a well developed, well nourished patient who is awake, alert, pm1 and in no acute distress. Head/Face: Normocephalic, atraumatic. Eyes: Pupils equal round and reactive to light, extra-ocular motions intact. Lids and lashes normal. Conjunctiva and sclera are non-icteric and not injected. Cornea within normal limits. Periorbital areas with no swelling, redness, or edema. ENT: Nares patent. No nasal discharge, no septal abnormalities noted. Tympanic membranes are normal and external auditory canals are clear. Oropharynx with no redness, swelling, or masses, exudates, or evidence of obstruction, uvula midline. Mucous membranes moist. Neck: Trachea midline, no thyromegaly or masses palpated, and no cervical lymphadenopathy. Supple, full range of motion without nuchal rigidity, or vertebral point tenderness. No Meningismus. Chest/axilla: Normal chest wall appearance and motion. Nontender with no deformity. No lesions are appreciated. Cardiovascular: Regular rate and rhythm with a normal S1 and S2. No gallops, murmurs, or rubs. Normal PMI, no JVD. No pulse deficits. Respiratory: Lungs have equal breath sounds bilaterally, clear to auscultation and percussion. No rales, rhonchi or wheezes noted. No increased work of breathing, no retractions or nasal flaring. Abdomen/GI: Soft, non-tender, with normal bowel sounds. No distension or tympany. No guarding or rebound. No evidence of tenderness throughout. 21:31 Skin: Warm, dry with normal turgor. Normal color with no rashes, no lesions, and no evidence of cellulitis. MS/ Extremity: Pulses equal, no cyanosis. Neurovascular intact. Full, normal range of motion. 21:31 Back: pain, that is moderate, of the left low back, normal spinal alignment noted. 21:31 Neuro: Orientation: is normal, Motor: is normal. Vital Signs: 21:21 BP 140 / 72; Pulse 84; Resp 18; Temp 98.4(O); Pulse Ox 100% on R/A; Weight 111.58 kg; tl2 Height 5 ft. 4 in. (162.56 cm); Pain 10/10; 22:00 BP 108 / 67; Pulse 84; Resp 18; Pulse Ox 100% on R/A; lp1 22:57 BP 104 / 46; Pulse 86; Resp 18; Pulse Ox 100% on R/A; Pain 9/10; lp1 23:23 BP 106 / 58; Pulse 88; Resp 18; Pulse Ox 99% on R/A; lp1 21:21 Body Mass Index 42.23 (111.58 kg, 162.56 cm) tl2 MDM: 21:17 Patient medically screened. [facility] 23:03 Data reviewed: vital signs. Data interpreted: Pulse oximetry: on room air is 100 %. pm1 Interpretation: normal. Counseling: I had a detailed discussion with the patient and/or guardian regarding: the historical points, exam findings, and any diagnostic results supporting the discharge/admit diagnosis, lab results, radiology results, the need for outpatient follow up, to return to the emergency department if symptoms worsen or persist or if there are any questions or concerns that arise at home. 05/07 21:26 Order name: Basic Metabolic Panel; Complete Time: 22:40 [facility] 05/07 21:26 Order name: CBC with Diff; Complete Time: 23:34 pm 05/07 21:26 Order name: Hepatic Function; Complete Time: 22:40 [facility] 05/07 21:26 Order name: Lipase; Complete Time: 22:40 [facility] 05/07 21:26 Order name: Urine Microscopic Only; Complete Time: 22:46 05/07 21:48 Order name: Urine Dipstick--Ancillary (enter results); Complete Time: 22:43 05/07 21:26 Order name: CT Stone Protocol [facility] 05/07 21:48 Order name: Urine --Ancillary (enter results); Complete Time: 22:43 05/07 22:09 Order name: CBC Smear Scan; Complete Time: 23:34 [facility] 05/07 22:45 Order name: Urine Culture [facility] 05/07 21:26 Order name: IV Saline Lock; Complete Time: 21:45 [facility] 05/07 21:26 Order name: Labs collected and sent; Complete Time: 21:45 pm1 05/07 21:26 Order name: Urine Dipstick-Ancillary (obtain specimen); Complete Time: 21:45 pm1 05/07 21:26 Order name: Urine Test (obtain specimen); Complete Time: 21:45 pm1 Administered Medications: 22:05 Drug: NS 0.9% 1000 ml Route: IV; Rate: 1000 ml; Site: right antecubital; lp1 23:24 Follow up: IV Status: Completed infusion; IV Intake: 1000ml lp1 22:05 Drug: TORadol 30 mg Route: IVP; Site: right antecubital; lp1 22:45 Follow up: Response: Pain is unchanged, physician notified lp1 22:55 Drug: morphine 4 mg Route: IVP; Site: right antecubital; lp1 23:21 Follow up: Response: Pain is unchanged, physician notified lp1 22:55 Drug: Zofran 4 mg Route: IVP; Site: right antecubital; lp1 23:21 Follow up: Response: No adverse reaction lp1 23:21 Drug: Rocephin 1 grams Route: IV; Rate: calculated rate; Site: right antecubital; lp1 23:45 Follow up: IV Status: Completed infusion; IV Intake: 10ml lp1 Disposition: 05/08 09:37 Co-signature as Attending Physician, Kevin North MD I agree with the assessment and scott plan of care. Disposition: 05/07/19 23:03 Discharged to Home. Impression: Urinary tract infection, site not specified, Low back pain. - Condition is Stable. - Discharge Instructions: Back Pain, Adult, Urinary Tract Infection, Adult. - Prescriptions for Bactrim DS 800- 160 mg Oral Tablet - take 1 tablet by ORAL route every 12 hours for 10 days; 20 tablet. - Work release form, Medication Reconciliation Form, Thank You Letter, Antibiotic Education, Prescription Opioid Use form. - Follow up: Emergency Department; When: As needed; Reason: Worsening of condition. Follow up: Private Physician; When: 2 - 3 days; Reason: Recheck today's complaints, Continuance of care, Re-evaluation by your physician. - Problem is new. - Symptoms have improved. Signatures: Dispatcher [employer] Kevin Villasenor MD MD cha Pena, Laura, RN RN lp1 Tom Crowell COMPENSATION COORDINATOR COMPENSATION COORDINATOR pm1 Laney Garvey, RN RN tl2 Corrections: (The following items were deleted from the chart) 00:12 05/07 23:03 05/07/2019 23:03 Discharged to Home. Impression: Urinary tract infection, lp1 site not specified; Low back pain. Condition is Stable. Forms are Medication Reconciliation Form, Thank You Letter, Antibiotic Education, Prescription Opioid Use. Follow up: Emergency Department; When: As needed; Reason: Worsening of condition. Follow up: Private Physician; When: 2 - 3 days; Reason: Recheck today's complaints, Continuance of care, Re-evaluation by your physician. Problem is new. Symptoms have improved. pm1
--- NOTE | 2019-05-07 23:04 | ER ---
Nurse's Notes [facility] Name: Laney Tam Age: 24 yrs Sex: Female : 1995 Arrival Date: 05/07/2019 Time: 21:11 Bed 30 Private MD: Diagnosis: Urinary tract infection, site not specified;Low back pain Presentation: 05/07 21:20 Presenting complaint: Patient states: Low back pain that radiates to left side x 3 tl2 days. Denies fever or urinary problems. States that she was seen 2 days ago in ER for vomiting but it has resolved. Transition of care: patient was not received from another setting of care. Onset of symptoms was May 04, 2019. Risk Assessment: Do you want to hurt yourself or someone else? Patient reports no desire to harm self or others. Initial Sepsis Screen: Does the patient meet any 2 criteria? No. Patient's initial sepsis screen is negative. Does the patient have a suspected source of infection? No. Patient's initial sepsis screen is negative. Care prior to arrival: None. 21:20 Method Of Arrival: Ambulatory tl2 21:20 Acuity: RAVEN 3 tl2 Triage Assessment: 21:22 General: Appears in no apparent distress. uncomfortable, Behavior is calm, cooperative, tl2 appropriate for age. Pain: Complains of pain in lumbar area and left low back. 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 - Social history:: Smoking status: Patient uses tobacco products, smokes one pack cigarettes per day. - Ebola Screening: : No symptoms or risks identified at this time. Screenin:22 Abuse screen: Denies threats or abuse. Nutritional screening: No deficits noted. tl2 Tuberculosis screening: No symptoms or risk factors identified. Fall Risk None identified. Assessment: 21:45 General: Appears uncomfortable, Behavior is appropriate for age. Pain: Complains of lp1 pain in left low back Pain currently is 8 out of 10 on a pain scale. Quality of pain is described as sharp, Aggravated by palpation. Neuro: Level of Consciousness is awake, alert, obeys commands, Oriented to person, place, time, situation. Cardiovascular: Patient's skin is warm and dry. Respiratory: Respiratory effort is even, unlabored. GI: No signs and/or symptoms were reported involving the gastrointestinal system. : Denies burning with urination. EENT: No signs and/or symptoms were reported regarding the EENT system. Derm: Skin is pink, warm \T\ dry. Musculoskeletal: No deficits noted. 22:45 Reassessment: Patient reports no pain relief to left flank; provider notified;. lp1 Vital Signs: 21:21 BP 140 / 72; Pulse 84; Resp 18; Temp 98.4(O); Pulse Ox 100% on R/A; Weight 111.58 kg; tl2 Height 5 ft. 4 in. (162.56 cm); Pain 10/10; 22:00 BP 108 / 67; Pulse 84; Resp 18; Pulse Ox 100% on R/A; lp1 22:57 BP 104 / 46; Pulse 86; Resp 18; Pulse Ox 100% on R/A; Pain 9/10; lp1 23:23 BP 106 / 58; Pulse 88; Resp 18; Pulse Ox 99% on R/A; lp1 21:21 Body Mass Index 42.23 (111.58 kg, 162.56 cm) tl2 ED Course: 21:11 Patient arrived in ED. mr 21:13 Tom Crowell, HUSSAIN is PHCP. pm1 21:13 Kevin North MD is Attending Physician. pm1 21:21 Triage completed. tl2 21:21 Arm band placed on right wrist. tl2 21:22 Patient has correct armband on for positive identification. Placed in gown. Bed in low tl2 position. Call light in reach. Side rails up X 1. 21:31 Silvia Acosta, STORMY is Primary Nurse. lp1 21:[address] via wheelchair. vm2 21:37 Note: Discussed using test from yesterdays ER visit for todays CT exam with vmWaldo Santos; install and repair technician was given the go ahead.. 21:40 Inserted saline lock: 20 gauge in right antecubital area, using aseptic technique. lp1 Blood collected. 21:46 No provider procedures requiring assistance completed. lp1 21:56 CT Stone Protocol In Process Unspecified. EDMS 23:45 IV discontinued, No redness/swelling at site. Pressure dressing applied. lp1 Administered Medications: 22:05 Drug: NS 0.9% 1000 ml Route: IV; Rate: 1000 ml; Site: right antecubital; lp1 23:24 Follow up: IV Status: Completed infusion; IV Intake: 1000ml lp1 22:05 Drug: TORadol 30 mg Route: IVP; Site: right antecubital; lp1 22:45 Follow up: Response: Pain is unchanged, physician notified lp1 22:55 Drug: morphine 4 mg Route: IVP; Site: right antecubital; lp1 23:21 Follow up: Response: Pain is unchanged, physician notified lp1 22:55 Drug: Zofran 4 mg Route: IVP; Site: right antecubital; lp1 23:21 Follow up: Response: No adverse reaction lp1 23:21 Drug: Rocephin 1 grams Route: IV; Rate: calculated rate; Site: right antecubital; lp1 23:45 Follow up: IV Status: Completed infusion; IV Intake: 10ml lp1 Intake: 23:24 IV: 1000ml; Total: 1000ml. lp1 23:45 IV: 10ml; Total: 1010ml. lp1 Outcome: 23:03 Discharge ordered by MD. pm1 23:45 Discharged to home ambulatory, with friend. lp1 23:45 Condition: good 23:45 Discharge instructions given to patient, Instructed on discharge instructions, follow up and referral plans. medication usage, Demonstrated understanding of instructions, follow-up care, medications, Prescriptions given X 1. 23:55 Patient left the ED. lp1 Addendum: 05/11/2019 08:08 Addendum: Culture Results: Positive urine culture. No further action required. Bacteria s s sensitive to prescribed antibiotic. Signatures: Dispatcher [employer] EDWV Staci HayKelsey RN RN Silvia Hernandez RN RN lp1 Tom Crowell, HAND BOOTMAKER HAND BOOTMAKER pm1 Laney Garvey RN RN tl2 Marielle Galaviz [facility] Corrections: (The following items were deleted from the chart) 05/08 00:12 00:12 Patient left the ED. lp1 lp1
[2019-05-07] MEDS ORDERED: MORPHINE 4 MG/ML SYR ONE (23:07)
[2019-05-07] MEDS ORDERED: ONDANSETRON 4 MG/2 ML VIAL ONE (23:07)
[2019-05-07] MEDS ORDERED: CEFTRIAXONE/SWI 1gm 1 GM/10 ML SYR ONE (23:15)
[2019-05-07 23:27] LABS: Blood Morphology Comment NOTED (NOT SEEN); Platelet Estimate ADEQ; Urine White Blood Cell Casts OK
--- NOTE | 2019-05-08 10:37 | RAD REPORT ---
EXAM DESCRIPTION: CT - Stone Protocol - 05/08/2019 3:19 am CLINICAL HISTORY: The patient is 24 years old and is Female; FLANK PAIN TECHNIQUE: Axial computed tomography images of the abdomen and pelvis without intravenous contrast. Sagittal and coronal reformatted images were created and reviewed. This CT exam was performed usi ng one or more of the following dose reduction techniques: automated exposure control, adjustment o f the mA and/or kV according to patient size, and/or use of iterative reconstruction technique. COMPARISON: None. FINDINGS: LUNG BASES: Unremarkable. No mass. No consolidation. ABDOMEN: LIVER: Unremarkable. GALLBLADDER AND BILE DUCTS: Contracted gallbladder. No calcified stones. No ductal dilation. PANCREAS: Unremarkable. No ductal dilation. SPLEEN: Unremarkable. No splenomegaly. ADRENALS: Unremarkable. No mass. KIDNEYS AND URETERS: Punctate nonobstructing radiopaque stone in the superior pole of the left kid lee. STOMACH AND BOWEL: Unremarkable. No obstruction. No mucosal thickening. PELVIS: APPENDIX: The appendix is seen and is within normal limits. BLADDER: Bladder is decompressed. No stones. REPRODUCTIVE: Left ovarian cyst measuring 3.1 cm. ABDOMEN and PELVIS: INTRAPERITONEAL SPACE: Unremarkable. No free air. No significant fluid collection. BONES/JOINTS: No acute fracture. No dislocation. SOFT TISSUES: Abdominal midline scarring. VASCULATURE: Unremarkable. No abdominal aortic aneurysm. LYMPH NODES: Unremarkable. No enlarged lymph nodes. IMPRESSION: 1. No acute abdominal or pelvic abnormality. No obstructive uropathy. 2. Nonobstructive punctate left renal stone. 3. 3.1 cm left ovarian cyst. Recommend follow-up pelvic US in 6-12 weeks. Reference: J Am Kiran Radiol 2013;10:[id number]. Electronically signed by: Joesph Nguyen DO 05/07/2019 10:20 PM CDT Due to temporary technical issues with the PACS/Fluency reporting system, reports are being signed by the in house radiologist as a courtesy to ensure prompt reporting. The interpreting radiologist is shawn stockly responsible for the content of the report.
== END 2019-05-08 00:12 | disposition home or self-care (01) ==
LOC: ER 21:09
DX: N39.0 Urinary tract infection, site not specified (principal); F17.210 Nicotine dependence, cigarettes, uncomplicated; Z88.5 Allergy status to narcotic agent; Z91.013 Allergy to seafood; Z91.018 Allergy to other foods
CPT/HCPCS: 36415; 74176; 76377; 80048; 80076; 81003; 81015; 81025; 83690; 85025; 87077; 87086; 87088; 87186; 96361; 96365; 96375; 99284; J0696; J2405; J7030

== ENCOUNTER 2020-05-22 21:34 | Emergency (ER) | payer OTHER, SELFPAY ==
--- OUTSIDE RECORDS SUMMARY | 2020-05-22 21:37 | XMS REPORT | Continuity of Care Document ---
:1995 Author Organization [facility] t Address [address] [place] [address] Dr. Cota [address] [place] [id number] Care Team Providers Name Role Phone Unavailable Unavailable Unavailable Problems This patient has no known problems. Allergies, Adverse Reactions, Alerts This patient has no known allergies or adverse reactions. Medications This patient has no known medications. Procedures This patient has no known procedures. Results This patient has no known results.
[2020-05-23 01:30] LABS: Basophils % 0.4 % (0-1.3); Hematocrit 37.2 % (36.0-45.0); Lymphocytes % 25.1 % (15.3-44.8); MPV 9.2 fL (7.6-11.3); RBC Red Blood Cell Count 4.96 M/uL (3.86-4.86)
[2020-05-23 01:40] LABS: ALT/SGPT 42 U/L (12-78); AST/SGOT 21 U/L (15-37); Albumin 3.4 g/dL (3.4-5.0); Alkaline Phosphatase 70 U/L (45-117); BUN Blood Urea Nitrogen 8 mg/dL (7-18); Bicarbonate 24 mmol/L (21-32); Bilirubin Direct < 0.1 mg/dL (0-0.2); Bilirubin Total 0.3 mg/dL (0.2-1.0); Glucose Level 74 mg/dL (74-106); Lipase 114 U/L (73-393); Protein, Total 8.2 g/dL (6.4-8.2); Sodium Level 140 mmol/L (136-145)
[2020-05-23 02:00] LABS: Urine Blood NEGATIVE (NEG); Urine Glucose NEGATIVE (NEG); Urine Protein NEGATIVE (NEG); Urine Specific Gravity >1.030 (1.005-1.030)
--- NOTE | 2020-05-23 02:24 | EDPHYS ---
Physician Documentation [facility] Name: Laney Tam Age: 25 yrs Sex: Female : 1995 Arrival Date: 05/22/2020 Time: 21:39 Bed 26 Private MD: ED Physician Manjinder Wynne HPI: 05/23 01:41 This 25 yrs old Female presents to ER via Ambulatory with complaints of pm1 Diarrhea, Nausea. 01:41 The patient presents to the emergency department with nausea, diarrhea, abdominal pain, pm1 of the suprapubic area. Onset: The symptoms/episode began/occurred 1 week(s) ago. Possible causes: unknown. The symptoms are aggravated by nothing. The symptoms are alleviated by nothing. Associated signs and symptoms: Pertinent positives: abdominal pain, Pertinent negatives: dysuria, fever, cough. The patient has not experienced similar symptoms in the past. The patient has not recently seen a physician. Patient's work recommended her to come to the ER to be evaluated for covid. 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 - Social history:: Smoking status: Patient reports the use of cigarette tobacco products, smokes one pack cigarettes per day. ROS: 05/23 01:41 Constitutional: Negative for fever, chills, and weight loss, Eyes: Negative for injury, pm1 pain, redness, and discharge, ENT: Negative for injury, pain, and discharge, Neck: Negative for injury, pain, and swelling, Cardiovascular: Negative for chest pain, palpitations, and edema, Respiratory: Negative for shortness of breath, cough, wheezing, and pleuritic chest pain. Back: Negative for injury and pain, : Negative for injury, bleeding, discharge, and swelling, MS/Extremity: Negative for injury and deformity, Skin: Negative for injury, rash, and discoloration, Neuro: Negative for headache, weakness, numbness, tingling, and seizure. Abdomen/GI: Positive for abdominal pain, nausea, diarrhea, Negative for vomiting, constipation. Exam: 01:41 Constitutional: This is a well developed, well nourished patient who is awake, alert, pm1 and in no acute distress. Head/Face: Normocephalic, atraumatic. Chest/axilla: Normal chest wall appearance and motion. Nontender with no deformity. No lesions are appreciated. 01:41 Back: No spinal tenderness. No costovertebral tenderness. Full range of motion. 01:41 Skin: Warm, dry with normal turgor. Normal color with no rashes, no lesions, and no evidence of cellulitis. MS/ Extremity: Pulses equal, no cyanosis. Neurovascular intact. Full, normal range of motion. 01:41 Cardiovascular: Exam negative for acute changes, Rate: normal, Rhythm: regular, Pulses: no pulse deficits are appreciated. 01:41 Respiratory: Exam negative for acute changes, respiratory distress, shortness of breath. 01:41 Abdomen/GI: Exam negative for acute changes, Inspection: abdomen appears normal, Palpation: soft, in all quadrants, mild abdominal tenderness, in the suprapubic area. 01:41 Neuro: Exam negative for acute changes, Orientation: is normal, Mentation: is normal, Motor: is normal, moves all fours. Vital Signs: 05/22 21:55 BP 127 / 88; Pulse 97; Resp 15 S; Temp 98.5(TE); Pulse Ox 100% on R/A; Weight 108.86 kg ca1 (R); Height 5 ft. 4 in. (162.56 cm) (R); Pain 2/10; 22:00 BP 138 / 83; Pulse 67; Resp 16; Pulse Ox 98% on R/A; jb4 23:00 BP 149 / 40; Pulse 81; Resp 16; Pulse Ox 98% on R/A; jb4 05/23 02:00 BP 122 / 60; Pulse 75; Resp 16; Pulse Ox 100% on R/A; Pain 0/10; jb4 05/22 21:55 Body Mass Index 41.20 (108.86 kg, 162.56 cm) ca1 MDM: 05/22 23:16 Patient medically screened. pm1 05/23 01:45 Data reviewed: vital signs. Data interpreted: Pulse oximetry: on room air is 100 %. pm1 Interpretation: normal. 02:22 Counseling: I had a detailed discussion with the patient and/or guardian regarding: the pm1 historical points, exam findings, and any diagnostic results supporting the discharge/admit diagnosis, radiology results, the need for outpatient follow up, to return to the emergency department if symptoms worsen or persist or if there are any questions or concerns that arise at home. 02:22 Special discussion: Based on the patient's Hx, exam, and Dx evaluation, there is no pm1 indication for emergent surgery or inpatient Tx. It is understood by the patient/guardian that if the Sx's persist or worsen they need to return immediately for re-evaluation. 02:22 Special discussion: I discussed with the patient/guardian in detail that at this point pm1 there is no indication for admission to the hospital. It is understood, however, that if the symptoms persist or worsen the patient needs to return immediately for re-evaluation. 02:28 ED course: Patient does not want any prescriptions, she just wants a work release form pm1 to show that she got tested for covid so that she can return to work as soon as possible. Patient without any abdominal pain or tenderness on reexamination. 05/22 23:40 Order name: Basic Metabolic Panel; Complete Time: 01:41 pm1 05/22 23:40 Order name: CBC with Diff; Complete Time: 01:33 pm1 05/22 23:40 Order name: Hepatic Function; Complete Time: 01:41 pm1 05/22 23:40 Order name: Lipase; Complete Time: 01:41 pm1 05/22 23:40 Order name: COVID-19 pm1 05/22 23:40 Order name: Flu; Complete Time: 01:08 pm05/22 23:40 Order name: IV Saline Lock; Complete Time: 02:02 pm1 05/22 23:40 Order name: CT Abd/Pelvis - IV Contrast Only pm1 05/23 00:13 Order name: Urine Dipstick--Ancillary (enter results); Complete Time: 02:03 05/23 00:13 Order name: Urine --Ancillary (enter results); Complete Time: 02:03 05/23 01:31 Order name: CREATININE WHOLE BLOOD; Complete Time: 01:33 EDMS 05/22 23:40 Order name: Labs collected and sent; Complete Time: 02:02 pm1 Administered Medications: 02:02 Not Given (Patient Refused): NS 0.9% 1000 ml IV at 1000 ml once jb4 02:02 Not Given (Patient Refused): Zofran (Ondansetron) 4 mg IVP once; over 2 minutes jb4 02:02 Not Given (Patient Refused): TORadol - Ketorolac 15 mg IVP once jb4 Disposition: 07:47 Co-signature as Attending Physician, Manjinder Wynne MD I agree with the assessment and tw4 plan of care. Disposition: 05/23/20 02:23 Discharged to Home. Impression: Diarrhea, unspecified, Unspecified abdominal pain. - Condition is Stable. - Discharge Instructions: Abdominal Pain, Adult, Food Choices to Help Relieve Diarrhea, Adult, Diarrhea, Adult. - Work release form, Medication Reconciliation Form, Thank You Letter, Antibiotic Education, Prescription Opioid Use form. - Follow up: Emergency Department; When: As needed; Reason: Worsening of condition. Follow up: Private Physician; When: 2 - 3 days; Reason: Recheck today's complaints, Continuance of care, Re-evaluation by your physician. - Problem is new. - Symptoms have improved. Signatures: Dispatcher [employer] EDMS Tom Crowell, HUSSAIN PRISON LIBRARIAN pm1 Wilian Guerrero RN RN jb4 Manjinder Wynne MD MD tw4 Janie Mahan RN RN ca1 Corrections: (The following items were deleted from the chart) 02:43 02:23 05/23/2020 02:23 Discharged to Home. Impression: Diarrhea, unspecifiedUnspecified jb4 abdominal pain. Condition is Stable. Forms are Medication Reconciliation Form, Thank You Letter, Antibiotic Education, Prescription Opioid Use. Follow up: Emergency Department; When: As needed; Reason: Worsening of condition. Follow up: Private Physician; When: 2 - 3 days; Reason: Recheck today's complaints, Continuance of care, Re-evaluation by your physician. Problem is new. Symptoms have improved. pm1
--- NOTE | 2020-05-23 02:24 | ER ---
Nurse's Notes [facility] Name: Laney Tam Age: 25 yrs Sex: Female : 1995 Arrival Date: 05/22/2020 Time: 21:39 Bed 26 Private MD: Diagnosis: Unspecified abdominal pain;Diarrhea, unspecified Presentation: 05/22 21:55 Chief complaint: Patient states: Diarrhea x 1 week. N/V, fatigued. Denies cough, SOB, ca1 fever. Coronavirus screen: Proceed with normal triage. Patient denies a cough. Patient denies shortness of breath or difficulty breathing. Patient denies measured and/or subjective temperature greater than 100.4F prior to today's visit. Patient denies travel on a cruise ship or to a country the [facility] currently lists as an affected area. Patient denies contact with known and/or suspected case of COVID-19. Ebola Screen: Patient negative for fever greater than or equal to 101.5 degrees Fahrenheit, and additional compatible Ebola Virus Disease symptoms Patient denies exposure to infectious person. Patient denies travel to an Ebola-affected area in the 21 days before illness onset. No symptoms or risks identified at this time. Initial Sepsis Screen: Does the patient meet any 2 criteria? No. Patient's initial sepsis screen is negative. Does the patient have a suspected source of infection? No. Patient's initial sepsis screen is negative. Risk Assessment: Do you want to hurt yourself or someone else? Patient reports no desire to harm self or others. Onset of symptoms was May 22, 2020. 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 - Social history:: Smoking status: Patient reports the use of cigarette tobacco products, smokes one pack cigarettes per day. Screenin:20 Abuse screen: Denies threats or abuse. Nutritional screening: No deficits noted. jb4 Tuberculosis screening: No symptoms or risk factors identified. Fall Risk None identified. Assessment: 23:20 General: Appears in no apparent distress. comfortable, Behavior is calm, cooperative, jb4 appropriate for age, I was eating out on the may and took 2 bites and shortly after had stomach pain and diarrhea. I am still having the same symptoms with nausea.. Pain: Complains of pain in abdomen Pain does not radiate. Pain currently is 2 out of 10 on a pain scale. Quality of pain is described as crampy. Neuro: Level of Consciousness is awake, alert, obeys commands, Oriented to person, place, time, situation. Cardiovascular: Patient's skin is warm and dry. Respiratory: Airway is patent Respiratory effort is even, unlabored, Respiratory pattern is regular, symmetrical. GI: Abdomen is non-distended, obese, Bowel sounds present X 4 quads. Abd is soft and non tender X 4 quads. : No signs and/or symptoms were reported regarding the genitourinary system. EENT: No signs and/or symptoms were reported regarding the EENT system. Derm: Skin is intact, Skin is pink, warm \T\ dry. Musculoskeletal: Circulation, motion, and sensation intact. Range of motion: intact in all extremities. 05/23 00:20 Reassessment: Patient appears in no apparent distress at this time. Patient and/or jb4 family updated on plan of care and expected duration. Pain level reassessed. Patient is alert, oriented x 3, equal unlabored respirations, skin warm/dry/pink. 01:20 Reassessment: Patient appears in no apparent distress at this time. Patient and/or jb4 family updated on plan of care and expected duration. Pain level reassessed. Patient is alert/active/playful, equal unlabored respirations, skin warm/dry/pink. Patient denies pain at this time. Patient states feeling better. 02:20 Reassessment: Patient appears in no apparent distress at this time. Patient and/or jb4 family updated on plan of care and expected duration. Pain level reassessed. Patient is alert, oriented x 3, equal unlabored respirations, skin warm/dry/pink. Patient denies pain at this time. Patient states feeling better. 02:40 Reassessment: Pt verbalized understanding of d/c and follow up instructions. Denies jb4 questions or concerns. Ambulated out of ED with steady gait. Vital Signs: 05/22 21:55 BP 127 / 88; Pulse 97; Resp 15 S; Temp 98.5(TE); Pulse Ox 100% on R/A; Weight 108.86 kg ca1 (R); Height 5 ft. 4 in. (162.56 cm) (R); Pain 2/10; 22:00 BP 138 / 83; Pulse 67; Resp 16; Pulse Ox 98% on R/A; jb4 23:00 BP 149 / 40; Pulse 81; Resp 16; Pulse Ox 98% on R/A; jb4 05/23 02:00 BP 122 / 60; Pulse 75; Resp 16; Pulse Ox 100% on R/A; Pain 0/10; jb4 05/22 21:55 Body Mass Index 41.20 (108.86 kg, 162.56 cm) ca1 ED Course: 05/22 21:39 Patient arrived in ED. es 21:57 Triage completed. ca1 21:58 Arm band placed on right wrist. ca1 23:02 Tom Crowell NP is PHCP. pm1 23:02 Manjinder Wynne MD is Attending Physician. pm1 23:06 Wilian Guerrero, RN is Primary Nurse. jb4 05/23 00:39 Radiology exam delayed due to test not completed at this time. kw1 00:40 Missed attempt(s): 20 gauge in right antecubital area. sg 00:47 Missed attempt(s): 22 gauge in left forearm. Bleeding controlled, band aid applied, sg catheter tip intact. 01:00 Radiology exam delayed due to lab results not completed at this time. (BUN/Creatinine). kw1 01:09 Inserted saline lock: 20 gauge in right forearm, using aseptic technique. Blood ea collected. 01:44 CT Abd/Pelvis - IV Contrast Only In Process Unspecified. EDMS 02:42 Patient has correct armband on for positive identification. Bed in low position. Call jb4 light in reach. Side rails up X 1. 02:42 No provider procedures requiring assistance completed. IV discontinued, intact, jb4 bleeding controlled, No redness/swelling at site. Pressure dressing applied. Administered Medications: 02:02 Not Given (Patient Refused): NS 0.9% 1000 ml IV at 1000 ml once jb4 02:02 Not Given (Patient Refused): Zofran (Ondansetron) 4 mg IVP once; over 2 minutes jb4 02:02 Not Given (Patient Refused): TORadol - Ketorolac 15 mg IVP once jb4 Outcome: 02:23 Discharge ordered by . pm1 02:42 Discharged to home ambulatory. jb4 02:42 Condition: stable 02:42 Discharge instructions given to patient, Instructed on discharge instructions, follow up and referral plans. Demonstrated understanding of instructions, follow-up care. 02:43 Patient left the ED. jb4 Addendum: 05/25/2020 14:06 Addendum: COVID-19 Result: Negative result given to RN to notify pt. Contacted by: Arcenio Ta RN. Notified pt of negative COVID 19 swab results. Pt advised that even with a negative test result they should remain in isolation until symptom free for 3 days without medication. Pt also advised to return to the ED for worsening symptoms. Signatures: Dispatcher [employer] Lupe Delacruz RN RN dm5 Reza Harden RN Jocelynn Reyes Patrick, VIDEO JOURNALIST VIDEO JOURNALIST pm1 Wilian Guerrero RN RN jb4 Rola Moody RN RN ea Wilhelm, Kimberly kw1 Janie Mahan RN RN ca1
[2020-05-23 02:58] VITALS: TEMP 98.5
[2020-05-23 03:02] VITALS: BP 122/60; O2SAT 100
--- NOTE | 2020-05-23 11:56 | RAD REPORT ---
EXAM DESCRIPTION: CT - Abdomen Pelvis W Contrast - 05/23/2020 4:41 am CLINICAL HISTORY: ABD PAIN COMPARISON: 05/07/2019. TECHNIQUE: CT ABDOMEN PELVIS WITH IV CONTRAST on 05/22/2020 11:40 PM CDT This exam was performed according to our departmental dose-optimization program, which includes autom ated exposure control, adjustment of the mA and/or kV according to patient size and/or use of iterati ve reconstruction technique. FINDINGS: Lower lungs are clear. Abdomen: Liver is fatty in attenuation. There is no biliary dilatation. Gallbladder is normal in appe arance. The pancreas and spleen are normal in appearance. Adrenal glands and right kidney are normal. There is a punctate upper pole left renal calculus without hydronephrosis. Abdominal aorta is normal in course and caliber without aneurysm. There is no free air. There is no r etroperitoneal adenopathy. Pelvis: There is no bowel obstruction. Urinary bladder is unremarkable. There is no free fluid. Uteru s is normal in size. Appendix is poorly seen. There is no pericecal inflammation. Skeleton: There are no acute osseous findings. No suspicious bony lesions. IMPRESSION: Minimal left nephrolithiasis without hydronephrosis. Electronically signed by: Louis Mccabe MD 05/23/2020 1:52 AM CDT Due to temporary technical issues with the PACS/Fluency reporting system, reports are being signed by the in house radiologist without review as a courtesy to ensure prompt reporting. The interpreting r adiologist is fully responsible for the content of the report.
== END 2020-05-23 02:43 | disposition home or self-care (01) ==
LOC: ER 21:34
DX: R19.7 Diarrhea, unspecified (principal); Z20.828 Contact with and (suspected) exposure to other viral communicable diseases; F17.210 Nicotine dependence, cigarettes, uncomplicated; Z88.5 Allergy status to narcotic agent; Z91.013 Allergy to seafood; Z91.018 Allergy to other foods
CPT/HCPCS: 36415; 74177; 80048; 80076; 81003; 81025; 82565; 83690; 85025; 87804; 99284; Q9967; U0001